=== PATIENT | female | born 2000 | race Two or more races ===

== ENCOUNTER 2020-01-01 22:24 | Emergency (ER) | payer OTHER ==
[2020-01-01] MEDS ORDERED: Ondansetron 4 MG Tab.DIS PO ONE (22:25)
[2020-01-01] MEDS ORDERED: traMADol 50 MG Tab PO ONE (22:25)
[2020-01-01] MEDS ORDERED: Acetaminophen 325 MG Tab PO ONE (22:39)
[2020-01-01] MEDS ORDERED: Ondansetron 4 MG/2 ML SDV IVPUSH ONE (22:39)
[2020-01-01] MEDS ORDERED: Sodium Chloride 0.9% 1,000 ML IV SCH (22:45)
--- NOTE | 2020-01-02 00:02 | EDM.PDOC ---
ED HPI GENERAL MEDICAL PROBLEM - General Chief Complaint: General Stated Complaint: COVID Time Seen by Provider: 01/01/20 23:57 Source of Information: Reports: Patient History Limitations: Reports: No Limitations - History of Present Illness INITIAL COMMENTS - FREE TEXT/NARRATIVE: Has been sick with URI,COVID like symptoms since 12/29/19.She comes to the ED with fever,body aches,and headache.Has not taken anything for it. Mild cough. Weak,and tired,along with myalgias.Has been diagnosed with COVID-19 Generalized Pain Score (Numeric/FACES): 7 - Related Data Allergies Allergy/AdvReac Type Severity Reaction Status Date / Time No Known Allergies Allergy Verified 01/01/20 22:28 Home Meds: Home Meds NK [No Known Home Meds] 01/01/20 [History] ED ROS GENERAL - Review of Systems Review Of Systems: Comprehensive ROS is negative, except as noted in HPI. ED EXAM, GENERAL - Physical Exam Exam: See Below Exam Limited By: No Limitations General Appearance: Alert, Anxious Nose: Normal Inspection Head: Atraumatic Cardiovascular: No JVD Back Exam: Normal Inspection Extremities: Normal Inspection Neurological: Alert, Oriented Psychiatric: Normal Affect Course - Vital Signs Last Recorded V/S: Last Vital Signs Temp 101.2 F H 01/01/20 22:24 Pulse 108 H 01/01/20 22:24 Resp 18 01/01/20 22:24 BP 105/71 01/01/20 22:24 Pulse Ox 98 01/01/20 22:24 - Orders/Labs/Meds Orders: Active Orders 24 hr Category Date Time Status Sodium Chloride 0.9% [Normal Saline] 1,000 ml Med 01/01/20 22:45 Active IV ASDIRECTED Medication Orders Sodium Chloride (Normal Saline) 1,000 mls @ 999 mls/hr IV ASDIRECTED DENNIS Last Admin: 01/01/20 23:25 Dose: 999 mls/hr Documented by: KASEY Meds: Medications Generic Name Dose Route Start Last Admin Trade Name Freq PRN Reason Stop Dose Admin Sodium Chloride 1,000 mls @ 999 mls/hr 01/01/20 22:45 01/01/20 23:25 Normal Saline IV 999 mls/hr ASDIRECTED DENNIS Administration Discontinued Medications Generic Name Dose Route Start Last Admin Trade Name Freq PRN Reason Stop Dose Admin Acetaminophen 650 mg 01/01/20 22:39 01/01/20 23:25 Tylenol PO 01/01/20 22:40 650 mg NOW ONE Administration Ondansetron HCl 8 mg 01/01/20 22:39 01/01/20 23:25 Zofran IVPUSH 01/01/20 22:40 8 mg ONETIME ONE Administration Departure - Departure Time of Disposition: 23:59 Disposition: Home, Self-Care 01 Condition: Good Clinical Impression: Pain - Discharge Information Referrals: PCP,None [Primary Care Provider] - Sepsis Event Note (ED) - Evaluation Sepsis Screening Result: No Definite Risk - Focused Exam Vital Signs: Vital Signs Temp Pulse Resp BP Pulse Ox 01/01/20 22:24 101.2 F H 108 H 18 105/71 98 - Problem List & Annotations (1) COVID-19 SNOMED Code(s): 542603582 Code(s): U07.1 - COVID-19 Status: Acute Current Visit: Yes - Problem List Review Problem List Initiated/Reviewed/Updated: Yes - My Orders Last 24 Hours: My Active Orders 01/01/20 22:45 Sodium Chloride 0.9% [Normal Saline] 1,000 ml IV ASDIRECTED - Assessment/Plan Last 24 Hours: My Active Orders 01/01/20 22:45 Sodium Chloride 0.9% [Normal Saline] 1,000 ml IV ASDIRECTED Plan: I gave her 1 L of NS. Will discharge her with Tramadol and Zofran.
== END 2020-01-02 00:42 | disposition home or self-care (01) ==
LOC: FB.ED 22:24
DX: R50.9 Fever, unspecified (principal); R51.9 Headache, unspecified
CPT/HCPCS: 96374; 99283; 99284; A9270; J2405; J7030

== ENCOUNTER 2020-02-21 10:11 | Emergency (ER) | payer MEDICAID, OTHER ==
[2020-02-21] MEDS ORDERED: Ondansetron 4 MG Tab.DIS PO ONE (10:39)
[2020-02-21] MEDS ORDERED: Ketorolac 60 MG/2 ML SDV IM ONE (10:39)
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
[2020-02-21] MEDS ORDERED: Ibuprofen 600 MG Tab PO ONE (10:51)
[2020-02-21] MEDS ORDERED: Acetaminophen 325 MG Tab PO ONE (11:17)
== END 2020-02-21 12:05 | disposition home or self-care (01) ==
LOC: FB.ED 10:11
DX: G43.009 Migraine without aura, not intractable, without status migrainosus (principal)
CPT/HCPCS: 99283; A9270-GY